=== PATIENT | female | born 1955 | race Caucasian/White ===

== ENCOUNTER 2016-12-02 13:36 | Emergency (ER) | payer OTHER ==
[~2016-12-02] VITALS: Ht 162.6 cm; Wt 59.0 kg
[~2016-12-02 13:36] MED LIST: DOXY-216 PO; GABA-339 PO
[2016-12-02 13:45] VITALS: BP 121/76
== END 2016-12-02 14:22 | disposition left against medical advice (07) ==
LOC: EDBD 13:36 → ER 13:36
DX: R07.9 Chest pain, unspecified (principal); Z53.21 Procedure and treatment not carried out due to patient leaving prior to being seen by health care provider
CPT/HCPCS: 93005

== ENCOUNTER 2021-09-28 13:00 | Emergency (ER) | payer OTHER ==
[~2021-09-28] VITALS: Ht 152.4 cm; Wt 45.4 kg
[~2021-09-28 13:00] MED LIST changes: -DOXY-216 PO; +DOXY-286 PO
[2021-09-28] MEDS ORDERED: diazePAM 5 MG TAB PO ONE ×2 (18:15→21:00)
[2021-09-28] MEDS ORDERED: NICOTINE 21MG/24 HR TOPICAL PATCH TD ONE (18:30)
[2021-09-28] MEDS ORDERED: diphenhdrAMINE HCL 25 MG CAP PO ONE ×2 (18:30→23:15)
[2021-09-28 18:32] LABS: Basophils # (auto) 0 10 ^3/uL (0-0.2); Basophils % (auto) 0.5 % (0.0-2.0); Eosinophils # (auto) 0 10 ^3/uL (0-0.8); Eosinophils % (auto) 0.4 % (0.0-7.0); Hemoglobin 12.4 g/dL (12.2-16.2); Lymphocytes # (auto) 2.8 10 ^3/uL (0.4-5.4); Mean Corpuscular Hemoglobin 32.6 pg (28.0-32.0); Mean Corpuscular Hgb Conc. 34.3 g/dL (32.0-36.0); Mean Corpuscular Volume 94.9 fL (80.0-100.0); Monocytes # (auto) 0.7 10 ^3/uL (0-1.3); Monocytes % (auto) 9.3 % (0.0-12.0); Neutrophils # (auto) 3.8 10 ^3/uL (1.6-8.6); Neutrophils % (auto) 51.8 % (37.0-80.0); Nucleated Red Blood Cells % 0.1 %; Red Blood Cells 3.79 10^6/uL (4.0-5.20); Red Cell Distribution Width 12.8 % (11.8-14.3); White Blood Cell 7.3 10^3/uL (4.4-10.8)
[2021-09-28 18:44] LABS: Albumin 3.3 g/dL (3.4-5.0); Calcium 8.3 mg/dL (8.5-10.1); Magnesium 1.9 mg/dL (1.6-2.6)
[2021-09-28 18:48] LABS: BUN/Creatinine Ratio 13.6; Bilirubin, Total 0.2 mg/dL (0.2-1.0); Total Protein 6.4 g/dL (6.4-8.2)
[2021-09-28 18:56] LABS: Potassium 2.9 mmol/L (3.5-5.1); Salicylate 5.4 mg/dL (2.8-20.0)
[2021-09-28 18:58] LABS: Acetaminophen < 2.0 ug/mL (10-30)
[2021-09-28] MEDS ORDERED: ACETAMINOPHEN 325 MG TAB PO ONE (22:15)
[2021-09-28] MEDS ORDERED: POTASSIUM EFFERVESENT TAB 25 MEQ PO ONE (23:30)
[2021-09-29 08:33] LABS: Urine Bacteria NONE SEEN /hpf (None Seen); Urine Blood Negative /uL (Negative); Urine Specific Gravity 1.011 (1.001-1.035); Urine WBC <1 /hpf (0 - 5)
[2021-09-29 08:48] LABS: Alcohol, Urine < 3.0 mg/dL (0-10); Amphetamine Screen, Urine NEGATIVE (NEGATIVE); Barbiturate Scree,Urine NEGATIVE (NEGATIVE); Benzodiazephine Screen, Urine POSITIVE (NEGATIVE); Cannabinoid Screen, Urine POSITIVE (NEGATIVE); Cocaine Screen, Urine NEGATIVE (NEGATIVE); Opiate Scree,Urine NEGATIVE (NEGATIVE); Phencyclidine Screen, Urine NEGATIVE (NEGATIVE)
[2021-09-29] MEDS ORDERED: cloNIDine HCL 0.1 MG TAB PO ONE (12:45)
[2021-09-29] MEDS ORDERED: diphenhdrAMINE HCL 25 MG CAP PO ONE (22:15)
[2021-09-30] MEDS ORDERED: diphenhdrAMINE HCL 25 MG CAP PO ONE (06:15)
[2021-09-30] MEDS ORDERED: CARVEDILOL 3.125 MG TAB PO ONE (09:15)
[2021-09-30] MEDS ORDERED: POTASSIUM CHL 20 Meq TABLET PO ONE (10:00)
[2021-09-30] MEDS ORDERED: NICOTINE 14 MG/24HR TOPICAL PATCH TD ONE (10:00)
[2021-09-30 10:33] LABS: Albumin 3.5 g/dL (3.4-5.0); BUN/Creatinine Ratio 9.1; Calcium 8.6 mg/dL (8.5-10.1)
[2021-09-30 10:35] LABS: Bilirubin, Total 0.5 mg/dL (0.2-1.0); Total Protein 6.7 g/dL (6.4-8.2)
[2021-09-30 10:41] LABS: Potassium 2.8 mmol/L (3.5-5.1)
[2021-09-30] MEDS ORDERED: THIAMINE 100mg/ml INJ (200mg/2ml VIAL) IV ONE (12:30)
[2021-09-30] MEDS: LORazepam 2MG/ML-1ML VIAL IV SCH ×2 (13:18→16:30)
[2021-09-30 16:50] VITALS: BP 179/98
== END 2021-09-30 17:40 | disposition short-term general hospital (02) ==
LOC: EDBD 13:00 → ER 13:00
DX: F10.129 Alcohol abuse with intoxication, unspecified (principal); R45.851 Suicidal ideations; E87.6 Hypokalemia; Z20.822 Contact with and (suspected) exposure to COVID-19; Y90.8 Blood alcohol level of 240 mg/100 ml or more
CPT/HCPCS: 36415; 80053; 80307; 80320; 80329; 81001; 83735; 85025; 87426; 96374; 99285; J2060; J3411